=== PATIENT | female | born 1960 | race Caucasian/White ===

== ENCOUNTER 2016-08-14 09:21 | Emergency (ER) | payer MEDICARE, MEDICAID ==
--- NOTE | 2016-08-14 09:38 | EDM.PDOC ---
ED HPI GENERAL MEDICAL PROBLEM - General Chief Complaint: Trauma Stated Complaint: Right Shoulder Pain Time Seen by Provider: 08/14/16 09:28 Source of Information: Reports: Patient, Family, RN, RN Notes Reviewed History Limitations: Reports: No Limitations - History of Present Illness INITIAL COMMENTS - FREE TEXT/NARRATIVE: Patient presents to the ED at [facility] complaining of right shoulder pain from an injury 1 1/2 weeks ago. No head injury or trauma. No LOC. No numbness, tingling, or paresthesia of any extremity. Patient only medically screened. NO medical emergency found. Onset Date: 08/06/16 - Related Data Allergies Allergy/AdvReac Type Severity Reaction Status Date / Time heparin Allergy Severe Other Verified 04/26/16 07:55 Sulfa (Sulfonamide Allergy Swelling Verified 04/26/16 07:55 Antibiotics) Home Meds: Home Meds Omeprazole [Prilosec] 40 mg PO BID 09/23/13 [History] Albuterol [Proventil] 2.5 mg INH QIDRT PRN 02/23/14 [History] LORazepam [Ativan] 3.5 mg PO TID PRN 02/23/14 [History] Polyethylene Glycol 3350 [MiraLAX] 17 gm PO DAILY PRN 02/23/14 [History] Gabapentin [Neurontin] 300 mg PO QID 04/13/14 [History] traZODone 150 mg PO BEDTIME 04/13/14 [History] Zolpidem [Ambien] 10 mg PO BEDTIME 06/18/15 [History] Warfarin [Coumadin] 1.5 tab PO DAILY 07/06/15 [History] Albuterol/Ipratropium [DuoNeb 3.0-0.5 MG/3 ML] 3 ml NEB Q6HRRT #60 neb 10/22/15 [Rx] Budesonide [Pulmicort] 0.5 mg NEB BIDRT #60 neb 10/22/15 [Rx] traMADol [Ultram] 100 mg PO QID #12 tablet 10/22/15 [Rx] Past Medical History - Past Health History Medical/Surgical History: Denies Medical/Surgical History Cardiovascular History: Reports: Blood Clots/VTE/DVT Respiratory History: Reports: COPD, PE Neurological History: Reports: Other (See Below) Other Neuro History: "nerve pain" Psychiatric History: Reports: Addiction, Anxiety, Depression - Past Surgical History Cardiovascular Surgical History: Reports: Coronary Artery Bypass, Valve Replacement Social & Family History - Family History Family Medical History: Noncontributory - Tobacco Use Smoking Status *Q: Current Every Day Smoker Years of Tobacco use: 30 Packs/Tins Daily: 0.5 Second Hand Smoke Exposure: Yes - Alcohol Use Days Per Week of Alcohol Use: 0 - Recreational Drug Use Recreational Drug Use: No Recreational Drug Type: Reports: Ativan, Oxycodone Recreational Drug Use Frequency: Daily - Living Situation & Occupation Living situation: Reports: ED ROS GENERAL - Review of Systems Review Of Systems: See Below (Medical screening only; no medical emergency found ) ED EXAM, UPPER BACK/NECK PAIN - Physical Exam Exam: Not Obtained (Medical screening only; no exam performed; annetten is medically stable) Departure - Departure Time of Disposition: 09:37 Disposition: Home, Self-Care 01 Condition: good Clinical Impression: Right shoulder injury Qualifiers: Encounter type: initial encounter Qualified Code(s): S49.91XA - Unspecified injury of right shoulder and upper arm, initial encounter Right shoulder pain Qualifiers: Chronicity: acute Qualified Code(s): M25.511 - Pain in right shoulder - Discharge Information Referrals: Brody Coughlin MD [Physician] - Forms: ED Department Discharge - Problem List Review Problem List Initiated/Reviewed/Updated: Yes - Assessment/Plan Plan: Patient will be seen at the [facility] today at 10am
[2016-08-14 09:42] VITALS: BP 132/84
== END 2016-08-14 09:41 | disposition home or self-care (01) ==
LOC: VM.ED 09:21
DX: S49.91XA Unspecified injury of right shoulder and upper arm, initial encounter (principal); Z88.2 Allergy status to sulfonamides; J44.9 Chronic obstructive pulmonary disease, unspecified; F32.9 Major depressive disorder, single episode, unspecified; F41.8 Other specified anxiety disorders; F17.210 Nicotine dependence, cigarettes, uncomplicated; X58.XXXA Exposure to other specified factors, initial encounter; Z79.899 Other long term (current) drug therapy; Z88.8 Allergy status to other drugs, medicaments and biological substances; Z79.01 Long term (current) use of anticoagulants; Z95.1 Presence of aortocoronary bypass graft
CPT/HCPCS: 99283

== ENCOUNTER 2016-10-12 14:41 | Emergency (ER) | payer MEDICARE, MEDICAID ==
--- NOTE | 2016-10-12 15:26 | EDM.PDOC ---
[id number] 4d FELL ON LEFT HIP Time Seen by Provider: 10/12/16 15:15 Source of Information: Reports: Patient History Limitations: Reports: No Limitations - History of Present Illness INITIAL COMMENTS - FREE TEXT/NARRATIVE: pt states she trying to get out of a chair and fell hitting her left hip on the floor. Pt denies hitting her head. she denies hearing any pop or crack. Does have the ability to walk on the left hip but "hurts" extremely bad. Pt called 911 and was transported to the [place] [facility] where she was told she would need to wait 4 hours to be seen. She left AMA and family drove her here. Onset: Sudden Onset Date: 10/12/16 Onset Time: 02:00 Location: Reports: Lower Extremity, Left Quality: Reports: Sharp, Stabbing Severity: Severe Improves with: Reports: None Worsens with: Reports: Rest Left Hip Pain Score (Numeric/FACES): 10 - Related Data Allergies Allergy/AdvReac Type Severity Reaction Status Date / Time heparin Allergy Severe Other Verified 08/14/16 09:37 Sulfa (Sulfonamide Allergy Swelling Verified 08/14/16 09:37 Antibiotics) Home Meds: Home Meds Omeprazole [Prilosec] 40 mg PO BID 09/23/13 [History] Albuterol [Proventil] 2.5 mg INH QIDRT PRN 02/23/14 [History] LORazepam [Ativan] 3.5 mg PO TID PRN 02/23/14 [History] Polyethylene Glycol 3350 [MiraLAX] 17 gm PO DAILY PRN 02/23/14 [History] Gabapentin [Neurontin] 300 mg PO QID 04/13/14 [History] traZODone 150 mg PO BEDTIME 04/13/14 [History] Zolpidem [Ambien] 10 mg PO BEDTIME 06/18/15 [History] Warfarin [Coumadin] 1.5 tab PO DAILY 07/06/15 [History] Albuterol/Ipratropium [DuoNeb 3.0-0.5 MG/3 ML] 3 ml NEB Q6HRRT #60 neb 10/22/15 [Rx] Budesonide [Pulmicort] 0.5 mg NEB BIDRT #60 neb 10/22/15 [Rx] Past Medical History - Past Health History Medical/Surgical History: Denies Medical/Surgical History Cardiovascular History: Reports: Blood Clots/VTE/DVT Respiratory History: Reports: COPD, PE Neurological History: Reports: Other (See Below) Other Neuro History: "nerve pain" Psychiatric History: Reports: Addiction, Anxiety, Depression - Past Surgical History Cardiovascular Surgical History: Reports: Coronary Artery Bypass, Valve Replacement Social & Family History - Family History Family Medical History: Noncontributory - Tobacco Use Smoking Status *Q: Current Every Day Smoker Years of Tobacco use: 30 Packs/Tins Daily: 1 Second Hand Smoke Exposure: Yes - Alcohol Use Days Per Week of Alcohol Use: 0 - Recreational Drug Use Recreational Drug Use: No Recreational Drug Type: Reports: Ativan, Oxycodone Recreational Drug Use Frequency: Daily - Living Situation & Occupation Living situation: Reports: ED ROS GENERAL - Review of Systems Review Of Systems: See Below Constitutional: Reports: No Symptoms HEENT: Reports: No Symptoms Respiratory: Reports: No Symptoms Cardiovascular: Reports: No Symptoms Endocrine: Reports: No Symptoms GI/Abdominal: Reports: No Symptoms Musculoskeletal: Reports: Leg Pain. Denies: Back Pain, Joint Swelling Skin: Reports: No Symptoms Neurological: Reports: No Symptoms ED EXAM, GENERAL - Physical Exam Exam: See Below Exam Limited By: No Limitations General Appearance: Alert, WD/WN, Anxious Respiratory/Chest: No Respiratory Distress, No Accessory Muscle Use Cardiovascular: Normal Peripheral Pulses, Regular Rate, Rhythm, No Edema GI/Abdominal: Normal Bowel Sounds, Soft, Non-Tender Back Exam: Normal Inspection, Full Range of Motion. No: CVA Tenderness (L), CVA Tenderness (R), Decreased Range of Motion, Muscle Spasm, Paraspinal Tenderness, Vertebral Tenderness Extremities: Normal Inspection, Normal Range of Motion, Normal Capillary Refill , Leg Pain (severe left hip pain ), Limited Range of Motion. No: Joint Swelling , Danette's Sign Neurological: Alert, Oriented Skin Exam: Warm, Dry, Intact Course - Vital Signs Last Recorded V/S: Last Vital Signs Temp 37.4 C 10/12/16 14:59 Pulse 83 10/12/16 14:59 Resp 22 H 10/12/16 14:59 BP 139/78 10/12/16 14:59 Pulse Ox 95 10/12/16 14:59 - Orders/Labs/Meds Orders: Active Orders 24 hr Category Date Time Status Hip Min 2V or 3V Lt [CR] Stat Exams 10/12/16 15:20 Taken Meds: Medications Discontinued Medications Generic Name Dose Route Start Last Admin Trade Name Jamie PRN Reason Stop Dose Admin Ketorolac Tromethamine 30 mg 10/12/16 15:29 10/12/16 15:34 Toradol IM 10/12/16 15:30 30 mg ONETIME ONE Administration Departure - Departure Time of Disposition: 15:38 Disposition: Home, Self-Care 01 Condition: Good Clinical Impression: Hip strain Qualifiers: Encounter type: initial encounter Laterality: left Qualified Code(s): S76.012A - Strain of muscle, fascia and tendon of left hip, initial encounter - Discharge Information Instructions: Hip Pain Referrals: PCP,Unknown [Primary Care Provider] - 1 Week (post ER visit if not feeling better or having persistent pain ) Forms: ED Department Discharge, ED Return to Work/School Form, ED Summary Discharge Additional Instructions: Rest, ice, elevate, and stretch the hip muscle. Pt advised to move about the home in a careful motion. Place Ice over sore area 3-4 times a day as needed. Follow up with PCP next week if pain persist. - My Orders Last 24 Hours: My Active Orders 10/12/16 15:20 Hip Min 2V or 3V Lt [CR] Stat - Assessment/Plan Last 24 Hours: My Active Orders 10/12/16 15:20 Hip Min 2V or 3V Lt [CR] Stat
[2016-10-12] MEDS ORDERED: Ketorolac 30 MG/ML SDV IM ONE (15:29)
[2016-10-12 15:58] VITALS: BP 163/90
== END 2016-10-12 15:59 | disposition home or self-care (01) ==
LOC: VM.ED 14:41
DX: S76.012A Strain of muscle, fascia and tendon of left hip, initial encounter (principal); J44.9 Chronic obstructive pulmonary disease, unspecified; F17.210 Nicotine dependence, cigarettes, uncomplicated; Z88.2 Allergy status to sulfonamides; Z88.8 Allergy status to other drugs, medicaments and biological substances; Z79.01 Long term (current) use of anticoagulants; Z79.899 Other long term (current) drug therapy; Z95.2 Presence of prosthetic heart valve; Z95.1 Presence of aortocoronary bypass graft; W01.10XA Fall on same level from slipping, tripping and stumbling with subsequent striking against unspecified object, initial encounter
CPT/HCPCS: 73502; 96372; 99283; J1885

== ENCOUNTER 2016-12-17 16:32 | Emergency (ER) | payer MEDICARE, MEDICAID ==
[2016-12-17] MEDS ORDERED: Acetaminophen/HYDROcodone 325-5 MG Tab PO ONE (16:40)
[2016-12-17 17:08] VITALS: BP 122/59
[2016-12-17] MEDS ORDERED: Sodium Chloride 0.9% 10 ML Syringe FLUSH PRN (17:38)
[2016-12-17] MEDS ORDERED: Morphine 4 MG/ML Syringe IVPUSH ONE (17:42)
[2016-12-17] MEDS ORDERED: Acetaminophen/HYDROcodone 325-10 MG Tab PO ONE (17:53)
[2016-12-17] MEDS ORDERED: Take Home: Acetaminophen/HYDROcodone 325-10 MG, 5 Tab Pack PO ONE (17:54)
--- NOTE | 2016-12-17 19:19 | EDM.PDOC ---
ED HPI GENERAL MEDICAL PROBLEM - General Chief Complaint: Upper Extremity Injury/Pain Stated Complaint: left upper arm/shoulder pain Time Seen by Provider: 12/17/16 16:45 Source of Information: Reports: Patient, Significant Other History Limitations: Reports: No Limitations - History of Present Illness INITIAL COMMENTS - FREE TEXT/NARRATIVE: Pt. states that she fell while walking down the stairs, landing on her L lateral upper arm. Pt. denies striking her head, and states that she fell from standing height. Denies any numbness/tingling in extremity. She states that she is able to move the shoulder, but with increased discomfort. Pt. denies injury to this area previously. Onset: Today, Sudden Onset Date: 12/17/16 Onset Time: 16:00 Location: Reports: Upper Extremity, Left Quality: Reports: Sharp Severity: Severe Improves with: Reports: Rest Worsens with: Reports: Movement Associated Symptoms: Reports: No Other Symptoms Left Shoulder Pain Score (Numeric/FACES): 10 - Related Data Allergies Allergy/AdvReac Type Severity Reaction Status Date / Time heparin Allergy Severe Other Verified 12/17/16 17:12 Sulfa (Sulfonamide Allergy Swelling Verified 12/17/16 17:12 Antibiotics) Home Meds: Home Meds Omeprazole [Prilosec] 40 mg PO BID 09/23/13 [History] Albuterol [Proventil] 2.5 mg INH QIDRT PRN 02/23/14 [History] LORazepam [Ativan] 3.5 mg PO TID PRN 02/23/14 [History] Polyethylene Glycol 3350 [MiraLAX] 17 gm PO DAILY PRN 02/23/14 [History] Gabapentin [Neurontin] 300 mg PO QID 04/13/14 [History] traZODone 150 mg PO BEDTIME 04/13/14 [History] Zolpidem [Ambien] 10 mg PO BEDTIME 06/18/15 [History] Warfarin [Coumadin] 1.5 tab PO DAILY 07/06/15 [History] Albuterol/Ipratropium [DuoNeb 3.0-0.5 MG/3 ML] 3 ml NEB Q6HRRT #60 neb 10/22/15 [Rx] Budesonide [Pulmicort] 0.5 mg NEB BIDRT #60 neb 10/22/15 [Rx] Past Medical History - Past Health History Medical/Surgical History: Denies Medical/Surgical History Cardiovascular History: Reports: Blood Clots/VTE/DVT Respiratory History: Reports: COPD, PE Neurological History: Reports: Other (See Below) Other Neuro History: "nerve pain" Psychiatric History: Reports: Addiction, Anxiety, Depression - Past Surgical History Cardiovascular Surgical History: Reports: Coronary Artery Bypass, Valve Replacement Social & Family History - Family History Family Medical History: Noncontributory - Tobacco Use Smoking Status *Q: Current Every Day Smoker Years of Tobacco use: 35 Packs/Tins Daily: 0.5 Second Hand Smoke Exposure: Yes - Alcohol Use Days Per Week of Alcohol Use: 0 - Recreational Drug Use Recreational Drug Use: No Recreational Drug Type: Reports: Ativan, Oxycodone Recreational Drug Use Frequency: Daily - Living Situation & Occupation Living situation: Reports: Review of Systems - Review of Systems Review Of Systems: See Below Constitutional: Reports: No Symptoms Eyes: Reports: No Symptoms Ears: Reports: No Symptoms Nose: Reports: No Symptoms Mouth/Throat: Reports: No Symptoms Respiratory: Reports: No Symptoms Cardiovascular: Reports: No Symptoms GI/Abdominal: Reports: No Symptoms Genitourinary: Reports: No Symptoms Musculoskeletal: Reports: Shoulder Pain Skin: Reports: No Symptoms Neurological: Reports: No Symptoms Psychiatric: Reports: No Symptoms ED EXAM, GENERAL - Physical Exam Exam: See Below Exam Limited By: No Limitations General Appearance: Alert, No Apparent Distress Extremities: Normal Capillary Refill, Limited Range of Motion, Other (minimal crepitus to L shoulder, increased pain with movement) Neurological: Alert, Oriented, CN II-XII Intact Course - Vital Signs Last Recorded V/S: Last Vital Signs Temp 36.4 C 12/17/16 16:45 Pulse 93 12/17/16 16:45 Resp 18 12/17/16 16:45 BP 122/59 L 12/17/16 16:45 Pulse Ox 95 12/17/16 16:45 - Orders/Labs/Meds Orders: Active Orders 24 hr Category Date Time Status Shoulder Comp Lt [CR] Stat Exams 12/17/16 16:39 Taken Peripheral IV Insertion Adult [OM.PC] Routine Oth 12/17/16 17:38 Ordered Meds: Medications Discontinued Medications Generic Name Dose Route Start Last Admin Trade Name Freq PRN Reason Stop Dose Admin Hydrocodone Bitart/Acetaminophen 1 tab 12/17/16 16:40 12/17/16 18:34 Lostine 325-5 Mg PO 12/17/16 16:41 Not Given ONETIME ONE Hydrocodone Bitart/Acetaminophen 1 tab 12/17/16 17:53 12/17/16 17:57 Lostine 325-10 Mg PO 12/17/16 17:54 1 tab ONETIME ONE Administration Hydrocodone Bitart/Acetaminophen 2 packet 12/17/16 17:54 12/17/16 17:57 Take Home: Acetaminophen/Hydrocodone 325-10mg PO 12/17/16 17:55 2 packet ONETIME ONE Administration Morphine Sulfate 4 mg 12/17/16 17:42 12/17/16 18:34 Morphine IVPUSH 12/17/16 17:43 Not Given ONETIME ONE Sodium Chloride 10 ml 12/17/16 17:38 Saline Flush FLUSH ASDIRECTED PRN Keep Vein Open - Re-Assessments/Exams Free Text/Narrative Re-Assessment/Exam: 12/17/16 19:[address] Ireland at [facility]. Advised follow-up with ortho in 10 days for recheck of fracture. Stated that the pt. would not likely require surgical intervention. Departure - Departure Time of Disposition: 16:40 Disposition: Home, Self-Care 01 Condition: Good Clinical Impression: Fracture of humerus - Discharge Information Instructions: Humerus Fracture Treated With Immobilization Referrals: Brody Coughlin MD [Primary Care Provider] - Forms: ED Department Discharge Additional Instructions: Lostine 10/325mg 1 tab every 4-6 hours as needed for pain Follow-up with Dr. Coughlin this week. He will need to refer you to orthopedics in [place] or [place] and get you more pain medication. Keep sling on at all times, except when changing clothes. - My Orders Last 24 Hours: My Active Orders 12/17/16 16:39 Shoulder Comp Lt [CR] Stat 12/17/16 17:38 Peripheral IV Insertion Adult [OM.PC] Routine - Assessment/Plan Last 24 Hours: My Active Orders 12/17/16 16:39 Shoulder Comp Lt [CR] Stat 12/17/16 17:38 Peripheral IV Insertion Adult [OM.PC] Routine Assessment:: left proximal humerus fracture Plan: Home to rest. Lostine 10/325mg 1 tablet every 4-6 hours as needed for pain. Use sling all the time, except with changing clothes. Follow-up with Dr. Coughlin later this week. He will need to refill your pain medication and will need to refer you to orthopedics.
== END 2016-12-17 18:04 | disposition home or self-care (01) ==
LOC: VM.ED 16:32
DX: S42.212A Unspecified displaced fracture of surgical neck of left humerus, initial encounter for closed fracture (principal); J44.9 Chronic obstructive pulmonary disease, unspecified; F41.9 Anxiety disorder, unspecified; F17.210 Nicotine dependence, cigarettes, uncomplicated; F32.9 Major depressive disorder, single episode, unspecified; Z88.8 Allergy status to other drugs, medicaments and biological substances; Z88.2 Allergy status to sulfonamides; Z79.01 Long term (current) use of anticoagulants; Z79.899 Other long term (current) drug therapy; W10.9XXA Fall (on) (from) unspecified stairs and steps, initial encounter
CPT/HCPCS: 73030; 99283; A9270

== ENCOUNTER 2017-07-27 19:14 | Emergency (ER) | payer MEDICARE, MEDICAID ==
[2017-07-27 19:39] VITALS: BP 130/73
[2017-07-27] MEDS ORDERED: Take Home: traMADol 50 MG, 4 Tab Pack PO ONE (20:27)
[2017-07-27] MEDS ORDERED: Morphine 2 MG/ML Syringe IM ONE (20:27)
--- NOTE | 2017-07-28 05:46 | EDM.PDOC ---
ED HPI GENERAL MEDICAL PROBLEM - General Chief Complaint: Upper Extremity Injury/Pain Stated Complaint: Left shoulder pain Time Seen by Provider: 07/27/17 19:30 Source of Information: Reports: Patient, Family History Limitations: Reports: No Limitations - History of Present Illness INITIAL COMMENTS - FREE TEXT/NARRATIVE: Pt. presents to ER with complaints of dislocated L shoulder. Pt. states that she struck her shoulder causing it to dislocate it. Denies falling on an outstretched arm. She has had a reverse shoulder reconstruction of the L shoulder following a chronic proximal humerus fracture. She states that the shoulder is prone to dislocating. In reviewing her medical record, she recently has a reduction done at [facility] under anesthesia. Pt. has multiple comorbidities, and is known by this provider to be a very difficult intubation. Onset: Today Location: Reports: Upper Extremity, Left Left Shoulder Pain Score (Numeric/FACES): 5 - Related Data Allergies Allergy/AdvReac Type Severity Reaction Status Date / Time heparin Allergy Severe Other Verified 07/27/17 19:40 Sulfa (Sulfonamide Allergy Swelling Verified 07/27/17 19:40 Antibiotics) Home Meds: Home Meds Omeprazole [Prilosec] 40 mg PO BID 09/23/13 [History] Albuterol [Proventil] 2.5 mg INH QIDRT PRN 02/23/14 [History] LORazepam [Ativan] 3.5 mg PO TID PRN 02/23/14 [History] Polyethylene Glycol 3350 [MiraLAX] 17 gm PO DAILY PRN 02/23/14 [History] Gabapentin [Neurontin] 300 mg PO QID 04/13/14 [History] traZODone 150 mg PO BEDTIME 04/13/14 [History] Zolpidem [Ambien] 10 mg PO BEDTIME 06/18/15 [History] Warfarin [Coumadin] 1.5 tab PO DAILY 07/06/15 [History] Albuterol/Ipratropium [DuoNeb 3.0-0.5 MG/3 ML] 3 ml NEB Q6HRRT #60 neb 10/22/15 [Rx] Budesonide [Pulmicort] 0.5 mg NEB BIDRT #60 neb 10/22/15 [Rx] traMADol HCl [Tramadol HCl] 50 mg PO Q6H 07/27/17 [History] Past Medical History - Past Health History Medical/Surgical History: Denies Medical/Surgical History Cardiovascular History: Reports: Blood Clots/VTE/DVT Respiratory History: Reports: COPD, PE Gastrointestinal History: Reports: Chronic Constipation Neurological History: Reports: Other (See Below) Other Neuro History: "nerve pain" Psychiatric History: Reports: Addiction, Anxiety, Depression - Past Surgical History Cardiovascular Surgical History: Reports: Coronary Artery Bypass, Valve Replacement Musculoskeletal Surgical History: Reports: Shoulder Replacement, Other (See Below) Other Musculoskeletal Surgeries/Procedures:: Fracture left humerus, then a shoulder replacement, 2018 Social & Family History - Family History Family Medical History: Noncontributory - Living Situation & Occupation Living situation: Reports: Review of Systems - Review of Systems Review Of Systems: See Below Constitutional: Reports: No Symptoms Eyes: Reports: No Symptoms Ears: Reports: No Symptoms Nose: Reports: No Symptoms Mouth/Throat: Reports: No Symptoms Respiratory: Reports: No Symptoms Cardiovascular: Reports: No Symptoms GI/Abdominal: Reports: No Symptoms Genitourinary: Reports: No Symptoms Musculoskeletal: Reports: Shoulder Pain Skin: Reports: No Symptoms Neurological: Reports: No Symptoms Psychiatric: Reports: No Symptoms ED EXAM, GENERAL - Physical Exam Exam: See Below Exam Limited By: No Limitations General Appearance: Alert, WD/WN, No Apparent Distress Throat/Mouth: Normal Inspection, Normal Teeth, Normal Oropharynx, No Airway Compromise, Other (unable to view tonsillar pillars. Tongue is extremely large.) Respiratory/Chest: No Respiratory Distress, Lungs Clear, Normal Breath Sounds, No Accessory Muscle Use, Chest Non-Tender Cardiovascular: Normal Peripheral Pulses, Regular Rate, Rhythm, No Edema, No JVD , No Murmur, No Rub Extremities: Normal Capillary Refill, Limited Range of Motion, Other (Pain and decreased ROM to the shoulder. Pt. body habitus makes for difficult assessment of the joint) Skin Exam: Warm, Dry, Intact, Normal Color, No Rash ED TRAUMA EXTREMITY PROCEDURES - Joint Reduction Site: Shoulder (L) Pre-Procedure NV Status: Normal Post-Procedure NV Status: Normal Technique: Other (Combination madeline/scapular manipulation) Joint Reduction Complications: No Progress/Comments: To note, I have intubated this pt. in the past due several years ago. She was a very difficult intubation. Also, her PMH does put her at higher risk for intra and post procedural sedation complication. Decision was made to first attempt reduction without conscious sedation. Pt. was placed in the prone position with the L arm hanging off of the bed. Gentle traction was placed anteriorly toward the floor to assess stability of the joint. It was very evident that the shoulder was extremely lax, with minimal muscle resistance, so no sandbags weight was needed. Further traction was placed manually and the tip of the scapula was manipulated medially and the shoulder immediately reduced. Again, great laxity of the joint was noted, making the shoulder prone to redislocation , so the pt. was immediately placed in a full shoulder immobilizer, with attention given to keeping the extremity supported from the bottom and close the the body. Post reduction films showed successful reduction but possibly some mild subluxation, according to radiology. Pt. was now able to use the joint with and had minimal pain, so it was assumed it was reduced. I subsequently sent the images to [place] to have them reviewed by Dr. Snell who stated that the shoulder was adequately reduced. Course - Vital Signs Last Recorded V/S: Last Vital Signs Temp 37.7 C 07/27/17 19:20 Pulse 97 07/27/17 19:20 Resp 16 07/27/17 19:20 BP 130/73 07/27/17 19:20 Pulse Ox 98 07/27/17 19:20 - Orders/Labs/Meds Orders: Active Orders 24 hr Category Date Time Status Shoulder 1V Lt [CR] Stat Exams 07/27/17 20:32 Taken Shoulder Comp Lt [CR] Stat Exams 07/27/17 19:32 Taken DME for Discharge [COMM] Urgent Oth 07/27/17 20:20 Ordered Meds: Medications Discontinued Medications Generic Name Dose Route Start Last Admin Trade Name Jamie PRN Reason Stop Dose Admin Morphine Sulfate 2 mg 07/27/17 20:27 07/27/17 20:35 Morphine IM 07/27/17 20:28 2 mg ONETIME ONE Administration Tramadol HCl 1 packet 07/27/17 20:27 07/27/17 20:40 Take Home: Tramadol 50 Mg, 4 Tab Pack PO 07/27/17 20:28 1 packet ONETIME ONE Administration - Radiology Interpretation Free Text/Narrative:: Initial radiographs reveal inferior dislocation. Departure - Departure Time of Disposition: 21:39 Disposition: Home, Self-Care 01 Condition: Good Clinical Impression: Inferior dislocation of left shoulder - Discharge Information Instructions: Shoulder Dislocation Referrals: Brody Coughlin MD [Primary Care Provider] - Forms: ED Department Discharge Additional Instructions: Home to rest. Keep immobilizer on. Follow-up with Dr. Kelli MTZ. - My Orders Last 24 Hours: My Active Orders 07/27/17 19:32 Shoulder Comp Lt [CR] Stat 07/27/17 20:20 DME for Discharge [COMM] Urgent 07/27/17 20:32 Shoulder 1V Lt [CR] Stat - Assessment/Plan Last 24 Hours: My Active Orders 07/27/17 19:32 Shoulder Comp Lt [CR] Stat 07/27/17 20:20 DME for Discharge [COMM] Urgent 07/27/17 20:32 Shoulder 1V Lt [CR] Stat
== END 2017-07-27 21:39 | disposition home or self-care (01) ==
LOC: VM.ED 19:14
DX: S43.035A Inferior dislocation of left humerus, initial encounter (principal); Z88.2 Allergy status to sulfonamides; Z88.8 Allergy status to other drugs, medicaments and biological substances; Z79.899 Other long term (current) drug therapy; Z79.01 Long term (current) use of anticoagulants; W22.8XXA Striking against or struck by other objects, initial encounter
CPT/HCPCS: 23650; 73020-LT; 73030-LT; 96372; 99283; 99283-GF-25; A9270-GY; J2270

== ENCOUNTER 2017-08-03 14:29 | Emergency (ER) | payer MEDICARE, MEDICAID ==
--- NOTE | 2017-08-03 14:50 | EDM.PDOC ---
ED HPI GENERAL MEDICAL PROBLEM - General Chief Complaint: Upper Extremity Injury/Pain Stated Complaint: shoulder pain left Time Seen by Provider: 08/03/17 14:30 Source of Information: Reports: Patient History Limitations: Reports: No Limitations - History of Present Illness INITIAL COMMENTS - FREE TEXT/NARRATIVE: Pt comes into the ER with complaint of left shoulder pain. She has had multiple shoulder dislocations related to falls and shoulder surgery. Pt last had her shoulder reduced approx a week ago here in the ER. Pt returns today stating she feels that her shoulder is dislocated again. She did not fall and did not feel when it happened but thinks it occurred yesterday sometime. She has a tramadol script and has ran out and is wanting to have that refilled if possible. Left Shoulder Pain Score (Numeric/FACES): 10 - Related Data Allergies Allergy/AdvReac Type Severity Reaction Status Date / Time heparin Allergy Severe Other Verified 08/03/17 14:50 Sulfa (Sulfonamide Allergy Swelling Verified 08/03/17 14:50 Antibiotics) Home Meds: Home Meds Omeprazole [Prilosec] 40 mg PO BID 09/23/13 [History] Albuterol [Proventil] 2.5 mg INH QIDRT PRN 02/23/14 [History] LORazepam [Ativan] 3.5 mg PO TID PRN 02/23/14 [History] Polyethylene Glycol 3350 [MiraLAX] 17 gm PO DAILY PRN 02/23/14 [History] Gabapentin [Neurontin] 300 mg PO QID 04/13/14 [History] traZODone 150 mg PO BEDTIME 04/13/14 [History] Zolpidem [Ambien] 10 mg PO BEDTIME 06/18/15 [History] Warfarin [Coumadin] 1.5 tab PO DAILY 07/06/15 [History] Albuterol/Ipratropium [DuoNeb 3.0-0.5 MG/3 ML] 3 ml NEB Q6HRRT #60 neb 10/22/15 [Rx] Budesonide [Pulmicort] 0.5 mg NEB BIDRT #60 neb 10/22/15 [Rx] traMADol HCl [Tramadol HCl] 50 mg PO Q6H 07/27/17 [History] Past Medical History - Past Health History Medical/Surgical History: Denies Medical/Surgical History Cardiovascular History: Reports: Blood Clots/VTE/DVT Respiratory History: Reports: COPD, PE Gastrointestinal History: Reports: Chronic Constipation Neurological History: Reports: Other (See Below) Other Neuro History: "nerve pain" Psychiatric History: Reports: Addiction, Anxiety, Depression - Past Surgical History Cardiovascular Surgical History: Reports: Coronary Artery Bypass, Valve Replacement Musculoskeletal Surgical History: Reports: Shoulder Replacement, Other (See Below) Other Musculoskeletal Surgeries/Procedures:: Fracture left humerus, then a shoulder replacement, 2018 Social & Family History - Family History Family Medical History: Noncontributory - Living Situation & Occupation Living situation: Reports: Review of Systems - Review of Systems Review Of Systems: See Below Constitutional: Reports: No Symptoms Eyes: Reports: No Symptoms Ears: Reports: No Symptoms Nose: Reports: No Symptoms Mouth/Throat: Reports: No Symptoms Respiratory: Reports: No Symptoms Cardiovascular: Reports: No Symptoms GI/Abdominal: Reports: No Symptoms Musculoskeletal: Reports: Arm Pain (multiple left shoulder dislocations with shoulder pain ), Muscle Pain Skin: Reports: No Symptoms Neurological: Reports: No Symptoms Psychiatric: Reports: No Symptoms ED EXAM, GENERAL - Physical Exam Exam: See Below Exam Limited By: No Limitations General Appearance: Alert, WD/WN, No Apparent Distress Head: Atraumatic, Normocephalic Neck: Normal Inspection, Supple, Non-Tender, Full Range of Motion Respiratory/Chest: No Respiratory Distress, Lungs Clear, Normal Breath Sounds, No Accessory Muscle Use, Chest Non-Tender Cardiovascular: Normal Peripheral Pulses, Regular Rate, Rhythm Peripheral Pulses: 2+: Brachial (L), Brachial (R), Radial (L), Radial (R) Extremities: Normal Inspection, Normal Capillary Refill, Arm Pain (left arm ), Limited Range of Motion (left shoulder deformity noted at the anterior shoulder joint. ). No: Increased Warmth, Mottled, Pallor, Redness Neurological: Alert, Oriented Psychiatric: Normal Affect, Normal Mood Skin Exam: Warm, Dry, Intact, Normal Color, No Rash ED TRAUMA EXTREMITY PROCEDURES - Joint Reduction Site: Shoulder (L) Sedation: Other Pre-Procedure NV Status: Normal Post-Procedure NV Status: Normal Technique: Traction/Counter Traction, Nursermaid Supi/Pronation Number of Attempts: 2 Post-Reduction Imaging: Acceptably Reduced, No Fracture Seen Joint Reduction Complications: No Progress/Comments: Consultation completed with Dr. Dahl Orthpedic surgeon. In [place]. Surgeon states to try and reduce to the best of our ability into place patient in sling. It is recommended that she see her surgeon sooner than later to have a surgical intervention/repair completed. Patient's had multiple dislocations within the last couple months. He states that the tendons and ligaments are stretched and loosened and the probability of the shoulder stain intact is relatively low. He advises reducing to the best of ability and ensure normal vascular status supply pain medications and sent to the surgeon within the next couple days. Procedure: Written consent provided. Pt has significant risk with extreme complication with intubation here in this ER along with PMH puts her at higher risk for intra and post procedural sedation complications. Will attempt to reduce the shoulder without conscious sedation if pt can tolerate. Orthopedic surgeon agrees with this attempt prior to increasing the pt's risk of airway complication. Pt is agreeable for she has had this done in the past. Pt. was placed in the prone position with the L arm hanging off of the bed. Gentle traction was placed anteriorly toward the floor to assess stability of the joint. It was very evident that the shoulder was extremely lax, with minimal muscle resistance, so no sandbags weight was needed. Further traction was placed manually and the tip of the scapula was manipulated medially and the shoulder immediately reduced. Again, great laxity of the joint was noted, making the shoulder prone to re-dislocation. When the pt rolled over reassessment of the shoulder revealed the should joint had re- dislocated. A second attempt was done with Jorge technique with success. post xray completed with confirmation of successful placement and pt was placed in a sling and advised to keep her appointment Friday with the surgeon. Course - Vital Signs Last Recorded V/S: Last Vital Signs Temp 36.6 C 08/03/17 14:30 Pulse 90 08/03/17 14:30 Resp 16 08/03/17 14:30 BP 122/81 08/03/17 14:30 Pulse Ox - Orders/Labs/Meds Orders: Active Orders 24 hr Category Date Time Status Shoulder 1V Lt [CR] Stat Exams 08/03/17 14:48 Taken Shoulder 1V Lt [CR] Stat Exams 08/03/17 15:56 Taken Meds: Medications Discontinued Medications Generic Name Dose Route Start Last Admin Trade Name Freq PRN Reason Stop Dose Admin Hydromorphone HCl 1 mg 08/03/17 15:52 08/03/17 15:59 Dilaudid IM 08/03/17 15:53 1 mg ONETIME ONE Administration Ketorolac Tromethamine 15 mg 08/03/17 15:00 08/03/17 15:18 Toradol IM 08/03/17 15:01 15 mg ONETIME ONE Administration Tramadol HCl 1 packet 08/03/17 15:59 Take Home: Tramadol 50 Mg, 4 Tab Pack PO 08/03/17 16:00 ONETIME ONE Departure - Departure Time of Disposition: 16:20 Disposition: Home, Self-Care 01 Condition: Good Clinical Impression: Dislocation, shoulder, anterior Qualifiers: Encounter type: initial encounter Laterality: left Qualified Code(s): S43.015A - Anterior dislocation of left humerus, initial encounter Right shoulder pain Qualifiers: Chronicity: acute Qualified Code(s): M25.511 - Pain in right shoulder - Discharge Information Instructions: Shoulder Pain, Tramadol tablets, Shoulder Dislocation, Easy-to- Read Referrals: Brody Coughlin MD [Primary Care Provider] - Forms: ED Department Discharge Additional Instructions: 1. Keep your appointment on Friday with your orthopedic surgeon 2. Keep arm in sling 3. Medications as prescribed 4. Ice the affected limb and try not to use as much as possible. - Problem List Review Problem List Initiated/Reviewed/Updated: Yes - My Orders Last 24 Hours: My Active Orders 08/03/17 14:48 Shoulder 1V Lt [CR] Stat 08/03/17 15:56 Shoulder 1V Lt [CR] Stat - Assessment/Plan Last 24 Hours: My Active Orders 08/03/17 14:48 Shoulder 1V Lt [CR] Stat 08/03/17 15:56 Shoulder 1V Lt [CR] Stat Assessment:: 1. left shoulder pain Plan: 1. Xray revealing left shoulder dislocation with significant subluxation 2. Consent was obtained for a left shoulder reduction 3. Toradol and Dilaudid were provided for pain management while in the emergency department. 4. Conscious sedation was not utilized during the reduction of the shoulder. Patient has a significant history with difficulty with intubation here in this hospital along with her past medical history of puts her at increased risk for intra-operative and postoperative sedation. He didn't an orthopedic surgeon were in agreement and so trying without procedural sedation. 5. First attempt at shoulder reduction was successful however when the patient was rolled over from her stomach to her back the shoulder dislocated again. The second attempt was made on her back and was reset a second time. For confirmation a x-ray was completed showing complete success and reduction of that left shoulder. 6. Patient was placed in shoulder immobilizer 7. Pt currently has an appointment with her orthopedic surgeon on Friday from a previous reduction that she had done last week. Patient is advised to keep that appointment 8. Patient is out of tramadol currently and states she will not be able to make the pain throughout the night. Patient was given tramadol 4 tablet pill pack. Patient is advised to contact her PCP who is her pain management doctor to fill her medications tomorrow.
[2017-08-03 15:01] VITALS: BP 122/81
[2017-08-03] MEDS: Ketorolac 15 MG/ML SDV IM ONE (15:18)
[2017-08-03] MEDS: HYDROmorphone 1 MG/ML Syringe IM ONE (15:59)
[2017-08-03] MEDS: Take Home: traMADol 50 MG, 4 Tab Pack PO ONE (16:11)
== END 2017-08-03 16:11 | disposition home or self-care (01) ==
LOC: VM.ED 14:29
DX: S43.015A Anterior dislocation of left humerus, initial encounter (principal); J44.9 Chronic obstructive pulmonary disease, unspecified; I25.810 Atherosclerosis of coronary artery bypass graft(s) without angina pectoris; F41.9 Anxiety disorder, unspecified; F32.9 Major depressive disorder, single episode, unspecified; Z88.8 Allergy status to other drugs, medicaments and biological substances; Z88.2 Allergy status to sulfonamides; Z79.899 Other long term (current) drug therapy; X58.XXXA Exposure to other specified factors, initial encounter
CPT/HCPCS: 23650; 73020-LT; 96372; 99283; 99283-GF-25; A9270-GY; J1170; J1885

== ENCOUNTER 2017-08-09 15:45 | Emergency (ER) | payer MEDICARE, MEDICAID ==
[2017-08-09 16:32] VITALS: BP 113/48
[2017-08-09] MEDS ORDERED: Ketorolac 15 MG/ML SDV IVPUSH ONE (16:32)
--- NOTE | 2017-08-09 16:43 | EDM.PDOC ---
ED HPI GENERAL MEDICAL PROBLEM - General Chief Complaint: Upper Extremity Injury/Pain Stated Complaint: Left Shoulder Pain Time Seen by Provider: 08/09/17 16:20 Source of Information: Reports: Patient History Limitations: Reports: No Limitations - History of Present Illness INITIAL COMMENTS - FREE TEXT/NARRATIVE: PT comes into the emergency department with a one-day history of a left shoulder dislocation. Patient has a long-standing history of shoulder dislocations. She was actually supposed shoulder surgery this last week. However anesthesiology have put it on hold related to diagnosis of bronchitis. She is hopeful to have the procedure done in the next 2 weeks. Patient has been in our emergency department 3 times for shoulder dislocation with reduction and she is also been in the [place] emergency room 3 times for the same shoulder reduction in the last 2 months. Patient does wear immobilizer on a daily basis however the shoulder continues to remain lax and dislocate spontaneously. Patient is on a pain contract and does have pain medications prescribed by her primary PCP. She does take tramadol [id number] for chronic pain management. She took some prior to her emergency room visit. She also has a complicated history regarding intubation and sedation. Her last shoulder dislocations have been done without sedation orthopedic surgeon and emergency medicine provided [place] agree to attempt to reduce the shoulder if patient tolerates if not other measures will be made. Patient denies any numbness, tingling, or loss of feeling. Onset: Sudden Left Shoulder Pain Score (Numeric/FACES): 10 - Related Data Allergies Allergy/AdvReac Type Severity Reaction Status Date / Time heparin Allergy Severe Other Verified 08/09/17 16:28 Sulfa (Sulfonamide Allergy Swelling Verified 08/09/17 16:28 Antibiotics) Home Meds: Home Meds Omeprazole [Prilosec] 40 mg PO BID 09/23/13 [History] Albuterol [Proventil] 2.5 mg INH QIDRT PRN 02/23/14 [History] LORazepam [Ativan] 3.5 mg PO TID PRN 02/23/14 [History] Polyethylene Glycol 3350 [MiraLAX] 17 gm PO DAILY PRN 02/23/14 [History] Gabapentin [Neurontin] 300 mg PO QID 04/13/14 [History] traZODone 150 mg PO BEDTIME 04/13/14 [History] Zolpidem [Ambien] 10 mg PO BEDTIME 06/18/15 [History] Warfarin [Coumadin] 1.5 tab PO DAILY 07/06/15 [History] Albuterol/Ipratropium [DuoNeb 3.0-0.5 MG/3 ML] 3 ml NEB Q6HRRT #60 neb 10/22/15 [Rx] Budesonide [Pulmicort] 0.5 mg NEB BIDRT #60 neb 10/22/15 [Rx] traMADol HCl [Tramadol HCl] 50 mg PO Q6H 07/27/17 [History] Past Medical History - Past Health History Medical/Surgical History: Denies Medical/Surgical History Cardiovascular History: Reports: Blood Clots/VTE/DVT Respiratory History: Reports: COPD, PE Gastrointestinal History: Reports: Chronic Constipation Musculoskeletal History: Reports: Other (See Below) Other Musculoskeletal History: dislocated L shoulder Neurological History: Reports: Other (See Below) Other Neuro History: "nerve pain" Psychiatric History: Reports: Addiction, Anxiety, Depression - Past Surgical History Cardiovascular Surgical History: Reports: Coronary Artery Bypass, Valve Replacement Musculoskeletal Surgical History: Reports: Shoulder Replacement, Other (See Below) Other Musculoskeletal Surgeries/Procedures:: Fracture left humerus, then a shoulder replacement, 2017 Social & Family History - Family History Family Medical History: Noncontributory - Living Situation & Occupation Living situation: Reports: Review of Systems - Review of Systems Review Of Systems: See Below Constitutional: Reports: No Symptoms Eyes: Reports: No Symptoms Ears: Reports: No Symptoms Nose: Reports: No Symptoms Mouth/Throat: Reports: No Symptoms Respiratory: Reports: No Symptoms Cardiovascular: Reports: No Symptoms GI/Abdominal: Reports: No Symptoms Genitourinary: Reports: No Symptoms Musculoskeletal: Reports: Shoulder Pain Skin: Reports: No Symptoms Neurological: Reports: No Symptoms Psychiatric: Reports: No Symptoms ED EXAM, GENERAL - Physical Exam Exam: See Below Exam Limited By: No Limitations General Appearance: Alert, WD/WN, No Apparent Distress Respiratory/Chest: No Respiratory Distress, Lungs Clear Cardiovascular: Normal Peripheral Pulses, Regular Rate, Rhythm Back Exam: Normal Inspection Extremities: Normal Inspection, Normal Capillary Refill, Other (left shoulder dislocation noted. CMS intact. ROM limited) Neurological: Alert, Oriented Psychiatric: Flat Affect Skin Exam: Warm, Dry, Intact, Normal Color, No Rash Course - Vital Signs Last Recorded V/S: Last Vital Signs Temp 36.6 C 08/09/17 16:29 Pulse 93 08/09/17 16:29 Resp 16 08/09/17 16:29 BP 113/48 L 08/09/17 16:29 Pulse Ox 96 08/09/17 16:29 - Orders/Labs/Meds Orders: Active Orders 24 hr Category Date Time Status Shoulder 1V Lt [CR] Stat Exams 08/09/17 16:30 Taken Shoulder 1V Lt [CR] Stat Exams 08/09/17 17:10 Ordered Meds: Medications Discontinued Medications Generic Name Dose Route Start Last Admin Trade Name Jamie PRN Reason Stop Dose Admin Ketorolac Tromethamine 15 mg 08/09/17 16:32 08/09/17 16:54 Toradol IVPUSH 08/09/17 16:33 Not Given ONETIME ONE Ketorolac Tromethamine 15 mg 08/09/17 16:52 08/09/17 16:55 Toradol IM 08/09/17 16:53 15 mg ONETIME ONE Administration Orphenadrine Citrate 60 mg 08/09/17 17:23 Norflex IM 08/09/17 17:24 NOW STA Departure - Departure Time of Disposition: 18:20 Disposition: Home, Self-Care 01 Condition: Good Clinical Impression: Dislocation, shoulder, anterior Qualifiers: Encounter type: initial encounter Laterality: left Qualified Code(s): S43.015A - Anterior dislocation of left humerus, initial encounter - Discharge Information Instructions: Shoulder Dislocation, [id number] Referrals: Brody Coughlin MD [Primary Care Provider] - Forms: ED Department Discharge Additional Instructions: 1. Xray revealing left shoulder dislocation 2. Consent was obtained for a left shoulder reduction 3. Toradol and Norflex were provided for pain management while in the emergency department. 4. Conscious sedation was not utilized during the reduction of the shoulder. Patient has a significant history with difficulty with intubation here in this hospital along with her past medical history of puts her at increased risk for intra-operative and postoperative sedation. Orthopedic surgeon last weekend when consulted regarding this case agreed and said to try without procedural sedation. 5. For confirmation a x-ray was completed showing complete success and reduction of that left shoulder. 6. Patient was placed in shoulder immobilizer 7. Pt currently has an appointment with her orthopedic surgeon within the next week. Patient is advised to keep that appointment. - Problem List Review Problem List Initiated/Reviewed/Updated: Yes - My Orders Last 24 Hours: My Active Orders 08/09/17 16:30 Shoulder 1V Lt [CR] Stat 08/09/17 17:10 Shoulder 1V Lt [CR] Stat - Assessment/Plan Last 24 Hours: My Active Orders 08/09/17 16:30 Shoulder 1V Lt [CR] Stat 08/09/17 17:10 Shoulder 1V Lt [CR] Stat Assessment:: 1. Left shoulder pain- with dislocation Plan: 1. Procedure: Left shoulder reduction Written consent provided. Pt has significant risk with extreme complication with intubation here in this ER along with PMH puts her at higher risk for intra and post procedural sedation complications. Will attempt to reduce the shoulder without conscious sedation if pt can tolerate. Orthopedic surgeon agreed last weekend when he was consulted to attempt without sedation. Pt is agreeable for she has had this done in the past. It was very evident that the shoulder was extremely lax. Attempt was done with Jorge technique. Post xray completed revealed dislocation still present. 2. Consultation completed with Dr. Laurent in [place] who is willing to see pt and try and reduce. 3. Pt is discharged and is expected to show in the ER in [place].
[2017-08-09] MEDS ORDERED: Ketorolac 15 MG/ML SDV IM ONE (16:52)
== END 2017-08-09 18:28 | disposition home or self-care (01) ==
LOC: VM.ED 15:45
DX: S43.015A Anterior dislocation of left humerus, initial encounter (principal); J44.9 Chronic obstructive pulmonary disease, unspecified; I25.810 Atherosclerosis of coronary artery bypass graft(s) without angina pectoris; Z88.8 Allergy status to other drugs, medicaments and biological substances; Z79.899 Other long term (current) drug therapy; Z88.2 Allergy status to sulfonamides; Z79.01 Long term (current) use of anticoagulants; Z86.711 Personal history of pulmonary embolism; X58.XXXA Exposure to other specified factors, initial encounter
CPT/HCPCS: 23650; 73020; 96372; 99283; J1885; J2360